=== PATIENT | female | born 1980 | race Caucasian/White ===

== ENCOUNTER 2024-03-08 15:00 | Outpatient (CLI) | payer MEDICAID, OTHER ==
[2024-03-08 18:40] LABS: BASOPHILS % (AUTO) 1.2 %; EOSINOPHILS % (AUTO) 14.1 %; HCT - HEMATOCRIT 39.1 % (37.0-47.0); HGB - HEMOGLOBIN 11.8 g/dL (12.0-16.0); LYMPHOCYTES % (AUTO) 22.8 %; MEAN CORPUSCULAR HEMOGLOBIN 24.2 pg (27.0-31.0); MEAN CORPUSCULAR HGB CONC 30.2 g/dL (32.0-36.0); MEAN CORPUSCULAR VOLUME 80.1 fL (81.0-99.0); NEUTROPHILS % (AUTO) 55.7 %; PLT - PLATELET COUNT 415 10^3/uL (130-450); RED BLOOD COUNT 4.88 10^6/uL (4.20-5.40); RED CELL DISTRIBUTION WIDTH 15.6 % (12.0-15.0); WHITE BLOOD COUNT 11.6 x10^3/uL (4.8-10.8)
[2024-03-08 18:43] LABS: ABNORMAL LYMPHS % (MANUAL) 0 %; BAND NEUTROPHILS % (MANUAL) 0 %
[2024-03-08 18:58] LABS: BILIRUBIN,URINE NEGATIVE (NEGATIVE); GLUCOSE, URINE (UA) 250 mg/dL (NEGATIVE); KETONES,URINE (UA) NEGATIVE (NEGATIVE); LEUKOCYTE ESTERASE, URINE NEGATIVE (NEGATIVE); NITRITE,URINE NEGATIVE (NEGATIVE); OCCULT BLOOD,URINE NEGATIVE (NEGATIVE); PH,URINE 5.5 PH (5.0-7.5); PROTEIN,URINE NEGATIVE (NEGATIVE); UROBILINOGEN,URINE 0.2 (NORMAL) E.U./dL (NORMAL)
[2024-03-08 19:14] LABS: DIFFERENTIAL COMMENT MANUAL DIFFERENTIAL; EOSINOPHILS # (MANUAL) 2.1 10^3/uL (0-0.7); LYMPHOCYTES # (MANUAL) 2.7 10^3/uL (1.5-3.5); LYMPHOCYTES % (MANUAL) 23 %; MONOCYTES # (MANUAL) 0.1 10^3/uL (0.0-1.0); NEUTROPHILS # (MANUAL) 6.7 10^3/uL (1.5-6.6); PLATELET ESTIMATE, MANUAL NORMAL (130-450,000) (NORMAL); PLATELET MORPHOLOGY NORMAL APPEARANCE (NORMAL); RBC MORPHOLOGY (MULTIPLE) NORMAL APPEARANCE (NORMAL)
[2024-03-08 19:17] LABS: ALBUMIN 3.9 g/dL (3.2-5.5); BILIRUBIN,TOTAL 0.3 mg/dL (0.2-1.0); CREATININE 0.6 mg/dL (0.6-1.3); POTASSIUM 3.9 mmol/L (3.5-4.5); TOTAL PROTEIN 7.7 g/dL (6.4-8.9)
[2024-03-08 19:37] LABS: CLARITY,URINE CLEAR (CLEAR); RBC,URINE None Seen /HPF (0-5); SQUAMOUS EPITHELIAL CELL,UR FEW Squamous (<= Few); WBC,URINE 0-3 /HPF (0-5)
[2024-03-08 19:38] LABS: BACTERIA,URINE None Seen /HPF (None Seen)
== END 2024-03-08 15:15 | disposition home or self-care (01) ==
LOC: LAB.N 15:00
PROVIDERS: ATTEND Nurse Practitioner
DX: R10.9 Unspecified abdominal pain (principal)
CPT/HCPCS: 36415; 80053; 81001; 82150; 83690; 85025; 87086

== ENCOUNTER 2024-03-09 16:00 | Emergency (ER) | payer MEDICAID ==
--- NOTE | 2024-03-09 16:57 | ED Physician Documentation ---
PD HPI ABD PAIN - Stated complaint Stated Complaint: ABD PX - Chief complaint Chief Complaint: Abd Pain - History obtained from History obtained from: Patient - Additional information Additional information: 43-year-old female with a past medical history of asthma presents with left upper abdominal pain that radiates into her left upper back. Is been present since yesterday. She went to the urgent care clinic and had labs done which showed a mild leukocytosis but otherwise reassuring she was directed to the ER. Patient tells me she has been coughing fairly consistently for the past month with increasing wheezing She is using albuterol without relief, does not typically use anything else, has not been on steroids or cough medicine. She denies any fever, no nausea vomiting diarrhea constipation, no urinary symptoms. She denies any chest pain. Review of Systems Constitutional: reports: Reviewed and negative Eyes: reports: Reviewed and negative Ears: reports: Reviewed and negative Nose: reports: Reviewed and negative Throat: reports: Reviewed and negative Cardiac: reports: Reviewed and negative Respiratory: reports: Cough, Wheezing GI: reports: Abdominal Pain. denies: Abdominal Swelling, Nausea, Vomiting, Constipation, Diarrhea : reports: Reviewed and negative Skin: reports: Reviewed and negative Musculoskeletal: reports: Reviewed and negative Neurologic: reports: Reviewed and negative PD PAST MEDICAL HISTORY - Past Medical History Past Medical History: Yes Cardiovascular: None Respiratory: Asthma GI: None [employer]: Ovarian cysts : None Psych: Depression Musculoskeletal: None Derm: Eczema - Past Surgical History Past Surgical History: No - Present Medications Home Medications: Ambulatory Orders Medication Instructions Recorded Confirmed Cetirizine HCl [Zyrtec] 30 DAILY 12/12/12 12/12/12 Gabapentin [Neurontin] 400 PRN 12/12/12 12/12/12 Spironolactone [Aldactone] 50 DAILY 12/12/12 12/12/12 Azithromycin [Zithromax] 0 mg PO DAILY #6 tablet 03/09/24 Omeprazole 20 mg PO DAILY #30 cap 03/09/24 predniSONE [Deltasone] 10 mg PO [id number] #42 tab 03/09/24 - Allergies Allergies/Adverse Reactions: Allergies Allergy/AdvReac Type Severity Reaction Status Date / Time latex Allergy Severe Respiratory Verified 03/09/24 16:30 hydrocodone [Hydrocodone] AdvReac Nausea Verified 03/09/24 16:30 - Social History Does the pt smoke?: No Smoking Status: Never smoker Does the pt drink ETOH?: Yes Does the pt have substance abuse?: No - Immunizations Immunizations are current?: Yes - POLST Patient has POLST: No PD ED PE NORMAL - Vitals Vital signs reviewed: Yes - General General: Alert and oriented X 3, No acute distress, Well developed/nourished - HEENT HEENT: Atraumatic, Moist mucous membranes - Neck Neck: Supple, no meningeal sign, No JVD - Cardiac Cardiac: RRR, No murmur, No gallop, No rub - Respiratory Respiratory: No respiratory distress, Other (Tight with bilateral expiratory wheezes, nonlabored) - Abdomen Abdomen: Normal bowel sounds, Soft, Non distended, Other (Mild left upper abdominal tenderness) - Back Back: No CVA TTP, No spinal TTP - Derm Derm: Normal color, Warm and dry, No rash - Neuro Neuro: Alert and oriented X 3 Eye Opening: Spontaneous Motor: Obeys Commands Verbal: Oriented GCS Score: 15 - Psych Psych: Normal mood, Normal affect Results - Vitals Vitals: Vital Signs - 24 hr 03/09/24 03/09/24 03/09/24 16:23 16:30 17:28 Temperature 36.9 C Heart Rate 97 96 88 Respiratory 18 20 18 Rate Blood Pressure 131/68 H 152/99 H O2 Saturation 96 96 03/09/24 03/09/24 18:43 18:59 Temperature 36.6 C Heart Rate 88 89 Respiratory 24 21 Rate Blood Pressure 153/105 H 153/106 H O2 Saturation 97 98 Oxygen O2 Source Room air - Labs Labs: Laboratory Tests 03/09/24 17:20 D-Dimer 201.5 - Rads (name of study) No standard instances Relevant Findings:: Final report received PD Medical Decision Making - ED course Complexity details: reviewed results, re-evaluated patient, considered differ ential, d/w patient ED course: 600 she is talking to 43-year-old female presented from the clinic for left upper abdominal pain, also complaining about a month-long history of cough and wheezing in the setting of mild intermittent asthma. She is well-appearing here on physical exam, afebrile nontoxic, does have some mild left upper abdominal pain and diffuse expiratory wheezing on exam. I reviewed her labs from clinic which are generally reassuring, her white count was mildly elevated 11.6 otherwise stable labs. She is mildly tachycardic here therefore I did consider PE though the patient did not have any risk factors, I obtained a D-dimer which was within normal. I think her symptoms are largely due to her asthma and constant coughing over the course of the last month but considered other abdominal causes of her pain Such as pancreatitis, among other routine causes of abdominal pain. She was given a DuoNeb and Solu-Medrol for her wheezing and we obtained a abdominal CT. She does have some mild gastritis/Esophagitis, but no other acute abdominal findings. She feels substantially better after receiving Solu-Medrol and and Again I think most of her symptoms are related to her persistent coughing and wheezing. We will treat for asthma exacerbation/bronchitis with azithromycin, a course of steroids, and she should continue the albuterol as needed. I have also prescribed omeprazole for GERD like symptoms. I discussed return precautions if new or worsening symptoms including fever, shortness of breath, increasing abdominal pain. Departure - Departure Disposition: 01 Home, Self Care Clinical Impression: Bronchitis, Reflux gastritis Condition: Good Instructions: ED Bronchitis Asthmatic Prescriptions: predniSONE [Deltasone] 10 mg PO [id number] #42 tab Omeprazole 20 mg PO DAILY #30 cap Azithromycin [Zithromax] 0 mg PO DAILY #6 tablet Comments: Your labs today were pretty reassuring, and your abdominal CT scan showed some possible reflux type symptoms but nothing emergent. I think your pain is primarily due to all the coughing you been doing for the last month from your asthma and I would be treat you for possible bronchitis with antibiotics and steroids. Please continue to use your albuterol as needed. Return if you develop a fever or worsening symptoms. Forms: PCP List Discharge Date/Time: 03/09/24 19:02
[2024-03-09] MEDS ORDERED: iohexoL-300 100 ML VIAL ONE (17:11)
[2024-03-09] MEDS: IPRATROPIUM/ALBUTEROL 3 ML NEB INH STA (17:27)
[2024-03-09] MEDS: methylPREDNISolone SUCCINATE 125 MG/2 ML VIAL IVP STA (17:50)
[2024-03-09] MEDS: iohexoL-300 100 ML VIAL IVP ONE (18:06)
--- NOTE | 2024-03-09 18:47 | CT Report ---
PROCEDURE: Abdomen/Pelvis W INDICATIONS: left sided abd pain CONTRAST: 100ml [id number] TECHNIQUE: After the administration of intravenous contrast, a CT scan of the abdomen and pelvis was performed. Images were recorded and evaluated at appropriate window settings. Reformats: coronal and sagittal. F or radiation dose reduction, the following was used: automated exposure control, adjustment of mA and /or kV according to patient size. COMPARISON: None. FINDINGS: Image quality: Diagnostic Lower chest: Scattered scarring and atelectasis, with a focal region in the lingula. Possible small hiatal hernia and nonspecific mild distal esophageal wall thickening. Liver: Possible hepatic steatosis Gallbladder and biliary system: Unremarkable, nondilated Pancreas: No ductal dilation or significant inflammation Spleen: Nonenlarged Adrenals: No discrete nodules Kidneys: No obstructing calcified stone or solid mass. 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 Vessels and lymph nodes: The main portal vein is patent. No abdominal aortic aneurysm or pathologic l ymph nodes by size criteria. Bowel and peritoneum: Possible mild thickening of the proximal stomach, not well evaluated due to und erdistention. No acute small bowel junction or pathologic ascites. There are few colonic diverticula without evidence of significant inflammation Body wall: Unremarkable Pelvis: Bladder is unremarkable. 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 Bones: Small sclerotic bone lesions are seen, usually bone islands. No acute or suspicious finding. T here are degenerative changes. IMPRESSION: Possible mild wall thickening of the distal esophagus and proximal stomach, representing gastroesopha gitis versus artifact of under distention. Endoscopy could further evaluate if necessary. No small bowel obstruction or other acute abdominopelvic finding on CT. Other incidental findings above. Reviewed by: Jorje Lewis MD on 03/09/2024 6:46 PM PDT Approved by: Jorje Lewis MD on 03/09/2024 6:46 PM PDT Station ID: [id number]
[2024-03-09 19:04] VITALS: BP 153/106; O2SAT 98
== END 2024-03-09 19:02 | disposition home or self-care (01) ==
LOC: ED 16:00
DX: J40 Bronchitis, not specified as acute or chronic (principal); K29.60 Other gastritis without bleeding; Z79.899 Other long term (current) drug therapy
CPT/HCPCS: 36415; 74177; 85379; 94640; 94664; 96374; 99283; 99284; Q9967